=== PATIENT | female | born 1980 | race Caucasian/White ===

== ENCOUNTER 2024-09-05 19:59 | Emergency (ER) | payer BC, SELFPAY ==
--- OUTSIDE RECORDS SUMMARY | 2024-09-05 20:01 | XMS_ITS ---
Author Organization [facility] Address [address] [facility] [address] [place] [address] Care Team Providers Care Lay Out Machine Operator Name Role Phone zzzzMigration, zzzzProvider Unavailable Unav ailable REASON FOR VISIT EMR-Hansel Encounters Encounter Location Date Provider Diagnosis [facility] [address] [facility] [address] [place] [address] 03/21/2023 zzzzProvider zzzzMigration Plan Of Treatment No Information Progress Notes * Henrietta FONTENOT ADOB: [birth year] (43 yo F)Acc No.[id number]:03/21/2023 Patient: Henrietta CHOI :1980 A ge:42 Y S ex:Female Address:[address] [place] [id number] Subjective: * Chief Complaints: * E MR-Hansel * Medical History: * Surgical History: * Hospitalization/Major Diagno stic Procedure: * Medications: Objective: * Vitals: * Physical Examination: Assessment: Plan: * Treatment: * Procedure Codes: * true * Date: Generated for Printi ng/Faxing/eTransmitting on: 0 09/05/2024 08:01 PM CDT
--- OUTSIDE RECORDS SUMMARY | 2024-09-05 20:01 | XMS_ITS ---
Author Organization [facility] Address [address] [facility] [address] [place] [address] Care Team Providers Care Tool Crib Lead Name Role Phone zzzzMigration, zzzzProvider Unavailable Unav ailable REASON FOR VISIT EMR-Hansel Encounters Encounter Location Date Provider Diagnosis [facility] [address] [facility] [address] [place] [address] 03/22/2023 zzzzProvider zzzzMigration Plan Of Treatment No Information Progress Notes * Henrietta FONTENOT ADOB: [birth year] (43 yo F)Acc No.[id number]:03/22/2023 Patient: Henrietta CHOI :1980 A ge:42 Y S ex:Female Address:[address] [place] [address] Subjective: * Chief Complaints: * E MR-Hansel * Medical History: * Surgical History: * Hospitalization/Major Diagno stic Procedure: * Medications: Objective: * Vitals: * Physical Examination: Assessment: Plan: * Treatment: * Procedure Codes: * true * Date: Generated for Printi ng/Faxing/eTransmitting on: 0 09/05/2024 08:01 PM CDT
--- OUTSIDE RECORDS SUMMARY | 2024-09-05 20:02 | XMS_ITS | Patient Health Record ---
Author Organization [facility] Address [address] [facility] [address] [place] [address] Support Name Relationship Address Phone Henrietta Cerna Guarantor Unknown [phone] Reason For Referral No Information Plan Of Treatment No Information
--- OUTSIDE RECORDS SUMMARY | 2024-09-05 20:02 | XMS_ITS | Patient Health Record ---
Author Organization [facility] Address [address] [place] [address] Care Team Providers Care Experimental Preflight Mechanic Name Role Phone Jesse Sun Unavailable [phone] Milton Atkinson Unavailable [phone] Reason For Referral No Information Social History Sex Assigned At : Social History Observation Description Sex Assigned At Female Encounters Encounter Location Date Provider Diagnosis [facility] [address] 08/17/2024 Milton Atkinson Plan Of Treatment Next Appt Details Provider Name:Milton Peacock , 09/20/2024 01:30:00 PM, [address] [place], [address], Insurance Providers Payer Name Payer Address Payer Phone Subscriber Number Group Number Insured Name Patient Relationship to Insured Coverage Start Date Coverage End Date [employer] [address] [address] [place] [address] [id number] Tata Cerna Self - patient is the insured 2024
--- OUTSIDE RECORDS SUMMARY | 2024-09-05 20:02 | XMS_ITS ---
Author Organization [facility] Address [address] [place] [address] Care Team Providers Care Millwright Instructor Name Role Phone Jesse Sun Unavailable [phone] Milton Atkinson Unavailable [phone] REASON FOR VISIT Sched New Pt Appt Social History Sex Assigned At : Social History Observation Description Sex Assigned At Female Encounters Encounter Location Date Provider Diagnosis [address] [address] 08/17/2024 Milton Atkinson Plan Of Treatment Next Appt Details Provider Name:Milton Peacock , 09/20/2024 01:30:00 PM, [address] [place], [address], Progress Notes * Tata CERNA ADOB: [birth year] (43 yo F)Acc No.[id number]:08/17/2024 Patient: Annie Tata ALEXANDER :1980 A ge:43 Y S ex:Female Address:[address] [place] [address], [address] * true * Date: Generated for Rosenda ledezma/Ann/eTransmitting on: 0 09/05/2024 08:01 PM CDT
[2024-09-05 20:26] VITALS: BP 157/112; PULSE 84; RESP 16; TEMP 28.3; O2SAT 100
--- NOTE | 2024-09-05 22:47 | ED_ITS ---
HPI - Eye Problem General Chief complaint: Eye Problems Stated complaint: Injury to right eye from weed eater Time Seen by Provider: 09/05/24 22:20 Source: patient Mode of arrival: ambulatory Limitations: no limitations History of Present Illness HPI Narrative: This is a 43-year-old female, with no significant past medical history, presents to the emergency department complaining of foreign body sensation in the right eye. The patient states she was weedeating for the 1st time when at approximately 1930, she felt a foreign body sensation in the right eye. She does not recall being struck in the eye or face by any object. She complains of mild swelling of the right eye associated with some tenderness but denies other eye pain, change/loss of vision, or fevers. She has no other complaints at this time. Related Data Allergies Allergy/AdvReac Type Severity Reaction Status Date / Time No Known Allergies Allergy Verified 09/05/24 22:01 Review of Systems Review of Systems: All systems reviewed & are unremarkable except as noted in HPI and below PMFSH Surgical History Surgical History No significant past surgical history Family History Family History Mother Family history of migraine headaches Patient's mother is in good health Family history of irritable bowel syndrome Father Patient's father is in good health Family history of irritable bowel syndrome Sibling Patient's brother is in good health Social History Social History Smoking status: Never smoker Alcohol intake: current Substance use: never Exam Narrative: GENERAL: Well-developed, well-nourished, and in no acute distress. HEAD: Normocephalic, atraumatic. EYES: PERRLA and EOMI. There is a mild amount swelling with a minimal amount of vascular congestion noted at the right lateral sclera. There is no significant tenderness palpation of the globe. ENT: There is mild swelling and minimal tenderness to palpation over the inferior orbital rim on the right. The left orbit appears normal. Nares clear, no rhinorrhea or epistaxis. Mucous membranes moist. CHEST: Clear to auscultation. No respiratory distress. No wheezes rales or rhonchi HEART: Regular rate and rhythm. No murmur heard. Normal peripheral pulses. ABDOMEN: Soft, nontender, nondistended, normal active bowel sounds. EXTREMITIES: Normal range of motion. No edema. SKIN: Warm, dry, no rash. NEURO: Alert and oriented x3. No focal deficit. Moving all 4 limbs spontaneously PSYCH: Normal mood and affect. Course Course Emergency Course: 22:51 - Fluorescein staining not concerning for corneal abrasion or other indication of globe injury. I suspect possible episcleritis as the cause of the patient's discomfort. Will discharge with recommendation for primary care and Ophthalmology follow-up. Will provide oncoming antibiotics in the event of worsening symptoms. I discussed the findings and recommendations with the patient. Discussed return and emergency precautions including signs/symptoms of orbital cellulitis and vision loss. The patient voiced understanding and agreement with the plan. All questions answered to her satisfaction. Vital Signs Vital signs: Vital Signs Temperature 83 F L 09/05/24 20:26 Pulse Rate 84 09/05/24 20:26 Respiratory Rate 16 09/05/24 20:26 Blood Pressure 157/112 H 09/05/24 20:26 Pulse Oximetry 100 09/05/24 20:26 Oxygen Delivery Room Air 09/05/24 20:26 Temperature 83 F L 09/05/24 20:26 Pulse Rate 76 09/05/24 23:00 Respiratory Rate 15 09/05/24 23:00 Blood Pressure 157/112 H 09/05/24 20:26 Pulse Oximetry 100 09/05/24 23:00 Oxygen Delivery Room Air 09/05/24 20:26 MDM - Eye Problem MDM Narrative Medical decision making narrative: Plan: Fluorescein staining, pain control, reassess Differential Diagnosis Differential diagnosis: Likely conjunctivitis and other (Episcleritis, corneal ulcer, retained foreign object, atopic dermatitis, contact dermatitis other) Discharge Plan Discharge Clinical Impression: Episcleritis, Irritation of left eye Patient Disposition: Home Condition: Stable Instructions: Antibiotic Form, Corneal Abrasion (ED) Additional Instructions: You were seen in the emergency department. Your exam was not concerning for corneal abrasion. I suspect episcleritis is the cause of your symptoms. I recommend following up with your primary care doctor and an it application administrator. I recommend ocular antibiotics in the event of worsening eye pain and more urgent ophthalmology follow-up. If you develop loss of vision, protrusion of the eye, eye pain with fevers, or if you have other emergent concerns for life, limb, or eyesight, return to the emergency department. Patient Language: Luxembourgish Prescriptions: New ciprofloxacin HCl 0.3 % drops 2 drp EACH EYE Q6H 5 Days Qty: 5 0RF Rx Instructions: administer while awake Refresh Contacts Drops 1 drp EACH EYE QID PRN (Reason: dry eye(s)) Qty: 12 0RF Follow-up/Referrals: [facility] [Outside] - 1 Week PHYSICIAN,VP CUSTOMER DEVELOPMENT [Primary Care Provider] - Time of Disposition: 22:51
[2024-09-05 23:00] VITALS: PULSE 76; RESP 15; O2SAT 100
== END 2024-09-05 23:02 | disposition home or self-care (01) ==
PROVIDERS: Emergency Provider Preventive Medicine Aerospace Medicine
DX: H15.101 Unspecified episcleritis, right eye (principal)
CPT/HCPCS: 99283